=== PATIENT | male | born 1925 | race Caucasian/White ===

== ENCOUNTER 2017-05-15 11:23 | Observation (INO) | payer OTHER ==
[~2017-05-15] VITALS: Ht 180.3 cm; Wt 72.0 kg
[~2017-05-15 11:23] MED LIST: ALFUZOSIN HCL10 MG PO; CENTRUM SILVER1 EAC3 PO; GINKGO BILOBA60 M3 PO; HYDROCODON-ACE1 EAC7 PO; IRON TABLET PO; LISINOPRIL2.5 MG PO; PRAVACHOL20 MG PO; ST. JOSEPH ASPI81 MG PO
[2017-05-15 12:20] LABS: HEMATOCRIT 35.5 % (38.0-50.0); MCH 28.4 PG (29.0-34.0); MCHC 32.7 G/DL (30.0-36.0); MEAN PLAT.VOLUME 11.2 uM^3 (9.0-12.4); PLATELET COUNT 254 K/uL (156-360); RBC DIS.WIDTH-CV 14.2 % (11.8-14.6); RED BLOOD COUNT 4.08 M/uL (4.00-5.50); WHITE BLOOD COUNT 12.7 K/uL (4.1-10.2)
[2017-05-15 12:31] LABS: CHLORIDE 105 mEq/L (99-109); POTASSIUM 4.6 mEq/L (3.7-5.4); SODIUM 140 mEq/L (136-147)
[2017-05-15 12:33] LABS: GLUCOSE 214 mg/dL (70-99)
[2017-05-15 12:34] LABS: ANION GAP 14 MEQ/L (2-14)
[2017-05-15 12:37] LABS: GFR ESTIMATE (CALCULATED) 30 mL/min/
[2017-05-15 12:38] LABS: UREA NITROGEN (BUN) 66 mg/dL (9-23)
[2017-05-15 14:33] LABS: ADD MIUA? YES; BILIRUBIN NEGATIVE; BLOOD NEGATIVE; COLOR YELLOW ((YELLOW)); GLUCOSE (STRIP) NEGATIVE; KETONES 5; LEUKOCYTES LARGE; NITRITE POSITIVE; PROTEIN (STRIP) 30; SPECIFIC GRAVITY 1.015 (1.000-1.030); UROBILINOGEN 0.2 MG/DL (0.2-1.0)
[2017-05-15 14:41] LABS: BACTERIA NONE SEEN /HPF; EPITHELIAL CELLS NONE SEEN /HPF; MUCUS TRACE /LPF; RED BLOOD CELLS 0-5 /HPF (0-5); UCUL ADDED? YES; WHITE BLOOD CELLS TNTC /HPF (0-5); WHITE BLOOD CELLS CLUMP FEW /HPF (0-5)
[2017-05-15] MEDS ORDERED: FLUTICASONE PRO16 GM BOTH NARES (17:16)
[2017-05-15] MEDS ORDERED: NAPROXEN500 MG PO (17:18)
[2017-05-15] MEDS ORDERED: TAMSULOSIN HCL0.4 MG PO (17:21)
[2017-05-15] MEDS ORDERED: VESICARE10 MG PO (17:25)
[2017-05-15] MEDS ORDERED: AMITRIPTYLINE H25 MG PO (17:26)
[2017-05-15] MEDS ORDERED: METFORMIN HCL1000 MG PO (17:27)
[2017-05-15 19:18] LABS: Estimated Average Glucose 160 mg/dL (70-123); HEMOGLOBIN A1c (GLYCOHEMOGLOB) 7.2 % HGB (Below 5.7)
[2017-05-15 20:06] VITALS: BP 135/65
[2017-05-15 21:09] LABS: POINT-OF-CARE METER ID UU13113831
[2017-05-16 00:19] VITALS: BP 149/66
[2017-05-16 04:00] VITALS: BP 143/70
[2017-05-16 05:44] LABS: HEMATOCRIT 30.7 % (38.0-50.0); MCH 27.6 PG (29.0-34.0); MCHC 31.6 G/DL (30.0-36.0); MCV 87.2 FL (86-99); MEAN PLAT.VOLUME 11.3 uM^3 (9.0-12.4); PLATELET COUNT 227 K/uL (156-360); RBC DIS.WIDTH-CV 14.4 % (11.8-14.6); RBC DIS.WIDTH-SD 45.7 % (39-53); RED BLOOD COUNT 3.52 M/uL (4.00-5.50)
[2017-05-16 06:05] LABS: ALKALINE PHOSPHATASE 54 IU/L (3-129); ANION GAP 8 MEQ/L (2-14); CHLORIDE 110 MEQ/L (99-109); GFR ESTIMATE (CALCULATED) 36 mL/min/; GLUCOSE 139 mg/dL (70-99); SAMPLE HEMOLYSIS CHECK 0; SAMPLE ICTERIC CHECK 0; SAMPLE LIPEMIA CHECK 0; SODIUM 142 MEQ/L (136-147); TOTAL BILIRUBIN 0.3 MG/DL (0.0-1.0); UREA NITROGEN (BUN) 60 mg/dL (9-23)
[2017-05-16 07:34] VITALS: BP 147/67
[2017-05-16 08:25] LABS: POINT-OF-CARE METER ID UU14162513
[2017-05-16 12:15] LABS: POINT-OF-CARE METER ID UU14162513
[2017-05-16 12:51] VITALS: BP 152/73
[2017-05-16 17:49] LABS: POINT-OF-CARE METER ID UU14162513
[2017-05-16 17:55] VITALS: BP 136/66
[2017-05-16 20:00] VITALS: BP 150/68
[2017-05-16 21:11] LABS: POINT-OF-CARE METER ID UU14162513
[2017-05-17] VITALS: BP 159/70
[2017-05-17 03:12] VITALS: BP 136/64
[2017-05-17 05:35] LABS: EOSINOPHIL (%) 4.1 % (0-5); EOSINOPHIL COUNT 0.2 K/uL (0-0.3); HEMATOCRIT 28.6 % (38.0-50.0); IMMATURE GRANULOCYTE (%) 1.7 % (0.0-0.7); IMMATURE GRANULOCYTE COUNT 0.1 K/uL; INSTRUMENT ABS NEUTROPHIL CT 3.6 K/uL; LYMPHOCYTE COUNT 0.9 K/uL (1.0-2.8); MCH 27.9 PG (29.0-34.0); MCHC 32.2 G/DL (30.0-36.0); MCV 86.7 FL (86-99); MEAN PLAT.VOLUME 10.7 uM^3 (9.0-12.4); MONOCYTE (%) 9.3 % (3-12); MONOCYTE COUNT 0.5 K/uL (0-0.8); NEUTROPHIL (%) 67.3 % (45-76); NEUTROPHIL COUNT 3.6 K/uL (1.8-6.4); PLATELET COUNT 240 K/uL (156-360); RBC DIS.WIDTH-CV 14.1 % (11.8-14.6); RBC DIS.WIDTH-SD 44.9 % (39-53); WHITE BLOOD COUNT 5.4 K/uL (4.1-10.2)
[2017-05-17 06:05] LABS: ANION GAP 8 MEQ/L (2-14); CHLORIDE 112 MEQ/L (99-109); GFR ESTIMATE (CALCULATED) 51 mL/min/; GLUCOSE 134 mg/dL (70-99); POTASSIUM 4.4 MEQ/L (3.7-5.4); SAMPLE HEMOLYSIS CHECK 0; SAMPLE ICTERIC CHECK 0; SAMPLE LIPEMIA CHECK 0; SODIUM 142 MEQ/L (136-147); UREA NITROGEN (BUN) 40 mg/dL (9-23)
[2017-05-17 07:45] VITALS: BP 156/72
[2017-05-17] MEDS ORDERED: BACTRIM,SEPT1 TABLET PO (10:39)
[2017-05-17] MEDS ORDERED: JANUVIA25 M1 PO (10:39)
[2017-05-17 12:39] VITALS: BP 154/70
[2017-05-17 12:42] LABS: POINT-OF-CARE METER ID UU14162513
[2017-05-17] MEDS ORDERED: LOVENOX30 MG/0.3 SC (16:15)
[2017-05-17] MEDS ORDERED: ROBITUSSIN100 MG/5 M PO (16:16)
[2017-05-17] MEDS ORDERED: NOVOLOG PE100 UNITS/ SC (16:17)
[2017-05-17] MEDS ORDERED: REGLAN5 MG/ML IV (16:18)
[2017-05-17] MEDS ORDERED: ZOFRAN4 MG PO (16:20)
== END 2017-05-17 14:08 ==
LOC: EME 11:23 → EDOF 16:53 → 5WEST 16:53 → EDOF 16:53 → ENRESERV 16:57 → 5WEST 19:37 → ENRESERV 05-16 10:30 → CANRESERV 05-16 10:30 → 5WEST 05-17 14:08
PROVIDERS: Internal Medicine; Student in an Organized Health Care Education/Training Program
DX: N17.9 Acute kidney failure, unspecified (principal); E86.0 Dehydration; N39.0 Urinary tract infection, site not specified; B96.20 Unspecified Escherichia coli [E. coli] as the cause of diseases classified elsewhere; D72.829 Elevated white blood cell count, unspecified; D64.9 Anemia, unspecified; I10 Essential (primary) hypertension; E11.9 Type 2 diabetes mellitus without complications; N40.0 Benign prostatic hyperplasia without lower urinary tract symptoms; Z85.46 Personal history of malignant neoplasm of prostate; Z79.84 Long term (current) use of oral hypoglycemic drugs; Z92.3 Personal history of irradiation; Z87.891 Personal history of nicotine dependence; Z60.2 Problems related to living alone; Z79.82 Long term (current) use of aspirin
CPT/HCPCS: 70450; 71020; 80048; 80053; 81003; 82948; 83036; 85025; 85027; 87040; 87077; 87086; 87186; 93005; 99281; 99285; G0378; G8987 GO CJ; G8988 CI; G8989 CJ; J0696; J1650; J1815; J7030; J7050

== ENCOUNTER 2017-05-17 11:27 | Inpatient (IN) | payer OTHER ==
[~2017-05-17] VITALS: Ht 185.4 cm; Wt 73.8 kg
[~2017-05-17 11:27] MED LIST changes: +AMITRIPTYLINE H25 MG PO; +BACTRIM,SEPT1 TABLET PO; +FLUTICASONE PRO16 GM BOTH NARES; +JANUVIA25 M1 PO; +METFORMIN HCL1000 MG PO; +NAPROXEN500 MG PO; +TAMSULOSIN HCL0.4 MG PO; +VESICARE10 MG PO
[2017-05-17 14:38] VITALS: BP 128/63
[2017-05-17] MEDS ORDERED: LOVENOX30 MG/0.3 SC (16:15)
[2017-05-17] MEDS ORDERED: ROBITUSSIN100 MG/5 M PO (16:16)
[2017-05-17] MEDS ORDERED: NOVOLOG PE100 UNITS/ SC (16:17)
[2017-05-17] MEDS ORDERED: REGLAN5 MG/ML IV (16:18)
[2017-05-17] MEDS ORDERED: ZOFRAN4 MG PO (16:20)
[2017-05-17 16:29] LABS: POINT-OF-CARE METER ID UU13113720
[2017-05-17 21:23] LABS: POINT-OF-CARE METER ID UU13113720
[2017-05-18 05:14] VITALS: BP 167/75
[2017-05-18 05:52] LABS: HEMATOCRIT 29.5 % (38.0-50.0); MCH 28.2 PG (29.0-34.0); MCHC 32.2 G/DL (30.0-36.0); MCV 87.5 FL (86-99); MEAN PLAT.VOLUME 10.7 uM^3 (9.0-12.4); PLATELET COUNT 268 K/uL (156-360); RBC DIS.WIDTH-CV 14.3 % (11.8-14.6); RBC DIS.WIDTH-SD 45.6 % (39-53); RED BLOOD COUNT 3.37 M/uL (4.00-5.50); WHITE BLOOD COUNT 6.8 K/uL (4.1-10.2)
[2017-05-18 06:40] LABS: ALKALINE PHOSPHATASE 47 IU/L (3-129); ANION GAP 5 MEQ/L (2-14); CHLORIDE 110 MEQ/L (99-109); GFR ESTIMATE (CALCULATED) 51 mL/min/; GLUCOSE 112 mg/dL (70-99); SAMPLE HEMOLYSIS CHECK 0; SAMPLE ICTERIC CHECK 0; SAMPLE LIPEMIA CHECK 0; SODIUM 140 MEQ/L (136-147); TOTAL BILIRUBIN 0.3 MG/DL (0.0-1.0); UREA NITROGEN (BUN) 27 mg/dL (9-23)
[2017-05-18 06:48] LABS: POTASSIUM 5.3 MEQ/L (3.7-5.4)
[2017-05-18 08:04] LABS: POINT-OF-CARE METER ID UU14174215; POINT-OF-CARE USER ID AHSSSJB31
[2017-05-18 11:40] LABS: POINT-OF-CARE METER ID UU14174215; POINT-OF-CARE USER ID AHSSSJB31
[2017-05-18 15:57] VITALS: BP 132/63
[2017-05-18 17:07] LABS: POINT-OF-CARE METER ID UU14174215
[2017-05-18 20:40] LABS: POINT-OF-CARE METER ID UU14174215
[2017-05-19 05:06] VITALS: BP 117/58
[2017-05-19 07:31] LABS: POINT-OF-CARE METER ID UU13113720; POINT-OF-CARE USER ID ENVGAF
[2017-05-19 11:58] LABS: POINT-OF-CARE METER ID UU13113720; POINT-OF-CARE USER ID ENVGAF
[2017-05-19 15:00] VITALS: BP 133/60
[2017-05-19 16:42] LABS: POINT-OF-CARE METER ID UU14174215
[2017-05-19 21:12] LABS: POINT-OF-CARE METER ID UU14174215
[2017-05-20 05:37] VITALS: BP 145/65
[2017-05-20 08:10] LABS: POINT-OF-CARE METER ID UU13113720; POINT-OF-CARE USER ID AHSSSJB31
[2017-05-20 11:26] LABS: POINT-OF-CARE METER ID UU13113720; POINT-OF-CARE USER ID AHSSSJB31
[2017-05-20 15:16] VITALS: BP 139/66
[2017-05-20 16:42] LABS: POINT-OF-CARE METER ID UU13113720; POINT-OF-CARE USER ID AHSSSJB31
[2017-05-20 21:06] LABS: POINT-OF-CARE METER ID UU13113720
[2017-05-21 04:24] VITALS: BP 110/49
[2017-05-21 07:41] LABS: POINT-OF-CARE METER ID UU14174215; POINT-OF-CARE USER ID AHSSSJB31
[2017-05-21 12:04] LABS: POINT-OF-CARE METER ID UU14174215; POINT-OF-CARE USER ID AHSSSJB31
[2017-05-21 15:33] VITALS: BP 123/60
[2017-05-22 06:00] VITALS: BP 117/55
[2017-05-22 07:49] LABS: POINT-OF-CARE METER ID UU14174215; POINT-OF-CARE USER ID AHSSSJB31
[2017-05-22 16:01] VITALS: BP 138/60
[2017-05-23 06:33] VITALS: BP 111/54
[2017-05-23 07:45] LABS: POINT-OF-CARE METER ID UU14174215; POINT-OF-CARE USER ID AHSSSJB31
[2017-05-23 15:07] VITALS: BP 117/61
[2017-05-24 05:23] VITALS: BP 149/65
[2017-05-24 15:01] VITALS: BP 125/61
[2017-05-25 04:57] VITALS: BP 115/56
[2017-05-25 07:32] LABS: POINT-OF-CARE METER ID UU13113720; POINT-OF-CARE USER ID 610211320
[2017-05-25 15:44] VITALS: BP 118/56
[2017-05-26 05:10] VITALS: BP 123/92
[2017-05-26 07:53] LABS: POINT-OF-CARE METER ID UU14174215; POINT-OF-CARE USER ID AHSSSJB31
[2017-05-26 08:30] VITALS: BP 117/56
[2017-05-26 15:26] VITALS: BP 116/56
[2017-05-27 05:22] VITALS: BP 107/66
[2017-05-27 14:59] VITALS: BP 110/56
[2017-05-28 05:13] VITALS: BP 122/57
[2017-05-28 07:00] LABS: POINT-OF-CARE METER ID UU13113720; POINT-OF-CARE USER ID ENVGAF
[2017-05-28 15:11] VITALS: BP 130/61
[2017-05-29 05:15] VITALS: BP 126/58
[2017-05-29 07:19] LABS: HEMATOCRIT 28.8 % (38.0-50.0); MCH 27.5 PG (29.0-34.0); MCHC 32.3 G/DL (30.0-36.0); MCV 85.2 FL (86-99); MEAN PLAT.VOLUME 11.4 uM^3 (9.0-12.4); PLATELET COUNT 257 K/uL (156-360); RBC DIS.WIDTH-CV 13.8 % (11.8-14.6); RBC DIS.WIDTH-SD 43.2 % (39-53); RED BLOOD COUNT 3.38 M/uL (4.00-5.50)
[2017-05-29 07:45] LABS: ALKALINE PHOSPHATASE 68 IU/L (3-129); ANION GAP 6 MEQ/L (2-14); CHLORIDE 107 MEQ/L (99-109); GFR ESTIMATE (CALCULATED) 47 mL/min/; GLUCOSE 111 mg/dL (70-99); POTASSIUM 5.2 MEQ/L (3.7-5.4); SAMPLE HEMOLYSIS CHECK 0; SAMPLE ICTERIC CHECK 0; SAMPLE LIPEMIA CHECK 0; SODIUM 135 MEQ/L (136-147); TOTAL BILIRUBIN 0.3 MG/DL (0.0-1.0); UREA NITROGEN (BUN) 27 mg/dL (9-23)
[2017-05-29 08:08] LABS: POINT-OF-CARE METER ID UU14174215
[2017-05-29 15:29] VITALS: BP 137/60
[2017-05-30 06:11] VITALS: BP 103/51
[2017-05-30 07:23] LABS: POINT-OF-CARE METER ID UU13113720
[2017-05-30] MEDS ORDERED: JANUVIA25 M1 PO (08:03)
== END 2017-05-30 14:35 | DRG 92 ==
LOC: 3WEST 11:27 → ENPENDDIS 05-30 → 3WEST 05-30 14:35
PROVIDERS: Physical Medicine & Rehabilitation Pain Medicine
PROC: F07M0ZZ Range of Motion and Joint Mobility Treatment of Musculoskeletal System - Whole Body (ICD-10-PCS; principal; 2017-05-17)
DX: R26.81 Unsteadiness on feet (principal); E87.1 Hypo-osmolality and hyponatremia; E86.0 Dehydration; N17.9 Acute kidney failure, unspecified; N39.0 Urinary tract infection, site not specified; B96.20 Unspecified Escherichia coli [E. coli] as the cause of diseases classified elsewhere; E83.51 Hypocalcemia; E77.8 Other disorders of glycoprotein metabolism; E88.09 Other disorders of plasma-protein metabolism, not elsewhere classified; I10 Essential (primary) hypertension; E11.9 Type 2 diabetes mellitus without complications; R53.1 Weakness; N40.0 Benign prostatic hyperplasia without lower urinary tract symptoms; F03.90 Unspecified dementia, unspecified severity, without behavioral disturbance, psychotic disturbance, mood disturbance, and anxiety; M47.814 Spondylosis without myelopathy or radiculopathy, thoracic region; M41.9 Scoliosis, unspecified; D64.9 Anemia, unspecified; H91.90 Unspecified hearing loss, unspecified ear; Z85.46 Personal history of malignant neoplasm of prostate; Z92.3 Personal history of irradiation; Z87.891 Personal history of nicotine dependence; Z60.2 Problems related to living alone; Z79.4 Long term (current) use of insulin
CPT/HCPCS: 80053; 82948; 85027; 92523 GN; 97110 GO; 97530 GP; 97532 GN; J1650; J1815

== ENCOUNTER 2017-06-07 14:40 | Emergency (ER) | payer OTHER ==
[~2017-06-07] VITALS: Ht 182.9 cm; Wt 71.8 kg
[~2017-06-07 14:40] MED LIST changes: +LOVENOX30 MG/0.3 SC; +NOVOLOG PE100 UNITS/ SC; +REGLAN5 MG/ML IV; +ROBITUSSIN100 MG/5 M PO; +ZOFRAN4 MG PO
[2017-06-07 15:26] LABS: CHLORIDE 106 mEq/L (99-109); SODIUM 137 mEq/L (136-147)
[2017-06-07 15:29] LABS: GLUCOSE 160 mg/dL (70-99)
[2017-06-07 15:30] LABS: ANION GAP 10 MEQ/L (2-14)
[2017-06-07 15:31] LABS: TOTAL BILIRUBIN 0.8 mg/dL (0.0-1.0)
[2017-06-07 15:32] LABS: ALKALINE PHOSPHATASE 71 IU/L (3-129); GFR ESTIMATE (CALCULATED) 38 mL/min/ (58.99-99999)
[2017-06-07 15:33] LABS: UREA NITROGEN (BUN) 26 mg/dL (9-23)
[2017-06-07 15:51] LABS: HEMATOCRIT 29.1 % (38.0-50.0); MCH 28.1 PG (29.0-34.0); MCV 85.1 FL (86-99); RBC DIS.WIDTH-CV 14.1 % (11.8-14.6); RBC DIS.WIDTH-SD 43.7 % (39-53); RED BLOOD COUNT 3.42 M/uL (4.00-5.50); WHITE BLOOD COUNT 9.7 K/uL (4.1-10.2)
[2017-06-07 16:13] LABS: PLATELET CLUMPS PRESENT - PLATELET COUNT APPEARS ADQ.; PLATELET COUNT UNABLE TO REPORT K/uL (156-360)
[2017-06-07 17:18] LABS: ADD MIUA? YES; BILIRUBIN NEGATIVE; BLOOD MODERATE; COLOR YELLOW ((YELLOW)); GLUCOSE (STRIP) NEGATIVE; KETONES NEGATIVE; LEUKOCYTES LARGE; NITRITE NEGATIVE; PROTEIN (STRIP) 30; SPECIFIC GRAVITY 1.013 (1.000-1.030); UROBILINOGEN 0.2 MG/DL (0.2-1.0)
[2017-06-07 17:47] LABS: BACTERIA NONE SEEN /HPF; EPITHELIAL CELLS RARE /HPF; MUCUS NONE SEEN /LPF; RED BLOOD CELLS 0-5 /HPF (0-5); UCUL ADDED? YES; WHITE BLOOD CELLS 20-30 /HPF (0-5)
[2017-06-07] MEDS ORDERED: BACTRIM,SEPT1 TABLET PO (17:59)
[2017-06-07 18:26] VITALS: BP 121/49
[2017-06-08] MEDS ORDERED: JANUVIA25 M1 PO (16:27)
== END 2017-06-07 18:28 | disposition home or self-care (01) ==
LOC: EME 14:40
PROVIDERS: Nurse Practitioner Family
DX: N39.0 Urinary tract infection, site not specified (principal); R41.0 Disorientation, unspecified; Z79.82 Long term (current) use of aspirin
CPT/HCPCS: 70450; 80053; 81003; 85027; 87077; 87086; 87186; 99281; 99285; J7030

== ENCOUNTER 2017-06-08 10:52 | Inpatient (IN) | payer OTHER ==
[~2017-06-08] VITALS: Ht 185.4 cm; Wt 72.8 kg
[2017-06-08 11:56] LABS: EOSINOPHIL (%) 0.2 % (0-5); HEMATOCRIT 25.5 % (38.0-50.0); IMMATURE GRANULOCYTE (%) 0.5 % (0.0-0.7); INSTRUMENT ABS NEUTROPHIL CT 5.6 K/uL; LYMPHOCYTE COUNT 0.4 K/uL (1.0-2.8); MCH 27.9 PG (29.0-34.0); MCHC 32.5 G/DL (30.0-36.0); MCV 85.6 FL (86-99); MEAN PLAT.VOLUME 11.4 uM^3 (9.0-12.4); MONOCYTE (%) 7.2 % (3-12); MONOCYTE COUNT 0.5 K/uL (0-0.8); NEUTROPHIL (%) 86.4 % (45-76); NEUTROPHIL COUNT 5.6 K/uL (1.8-6.4); RBC DIS.WIDTH-CV 14.1 % (11.8-14.6); RBC DIS.WIDTH-SD 43.9 % (39-53); RED BLOOD COUNT 2.98 M/uL (4.00-5.50); WHITE BLOOD COUNT 6.5 K/uL (4.1-10.2)
[2017-06-08 12:01] LABS: PLATELET COUNT 107 K/uL (156-360)
[2017-06-08 12:23] LABS: CHLORIDE 106 mEq/L (99-109); POTASSIUM 3.9 mEq/L (3.7-5.4); SODIUM 136 mEq/L (136-147)
[2017-06-08 12:27] LABS: ANION GAP 10 MEQ/L (2-14)
[2017-06-08 12:29] LABS: ALKALINE PHOSPHATASE 54 IU/L (3-129); GFR ESTIMATE (CALCULATED) 38 mL/min/ (58.99-99999)
[2017-06-08 12:30] LABS: UREA NITROGEN (BUN) 27 mg/dL (9-23)
[2017-06-08 12:32] LABS: GLUCOSE 247 mg/dL (70-99); TOTAL BILIRUBIN 0.4 mg/dL (0.0-1.0)
[2017-06-08 13:46] LABS: ADD MIUA? YES; BILIRUBIN NEGATIVE; BLOOD MODERATE; COLOR YELLOW ((YELLOW)); GLUCOSE (STRIP) 50; KETONES 5; LEUKOCYTES MODERATE; NITRITE POSITIVE; PROTEIN (STRIP) 30; SPECIFIC GRAVITY 1.014 (1.000-1.030); UROBILINOGEN 0.2 MG/DL (0.2-1.0)
[2017-06-08 13:50] LABS: BACTERIA 2+ /HPF; EPITHELIAL CELLS RARE /HPF; MUCUS NONE SEEN /LPF; UCUL ADDED? YES; WHITE BLOOD CELLS TNTC /HPF (0-5)
[2017-06-08] MEDS ORDERED: JANUVIA25 M1 PO (16:27)
[2017-06-08 18:35] LABS: TROP-I INTERPRETATION NEGATIVE; TROPONIN-I 0.01 ng/mL (0.0-0.30)
[2017-06-08 19:50] VITALS: BP 127/58
[2017-06-08 21:42] LABS: POINT-OF-CARE METER ID UU14314084
[2017-06-08 23:14] VITALS: BP 131/62
[2017-06-09] VITALS (7 sets, daily range): BP systolic 114–151; BP diastolic 56–70
[2017-06-09 01:13] LABS: TROP-I INTERPRETATION NEGATIVE; TROPONIN-I 0.02 ng/mL (0.0-0.30)
[2017-06-09 06:53] LABS: HEMATOCRIT 24.1 % (38.0-50.0); MCH 27.1 PG (29.0-34.0); MCV 84.9 FL (86-99); MEAN PLAT.VOLUME 11.7 uM^3 (9.0-12.4); PLATELET COUNT 94 K/uL (156-360); RBC DIS.WIDTH-SD 43.8 % (39-53); RED BLOOD COUNT 2.84 M/uL (4.00-5.50); WHITE BLOOD COUNT 3.6 K/uL (4.1-10.2)
[2017-06-09 07:02] LABS: POINT-OF-CARE METER ID UU14314084
[2017-06-09 07:14] LABS: ANION GAP 7 MEQ/L (2-14); CHLORIDE 111 MEQ/L (99-109); GFR ESTIMATE (CALCULATED) 43 mL/min/ (58.99-99999); POTASSIUM 3.8 MEQ/L (3.7-5.4); SAMPLE HEMOLYSIS CHECK 0; SAMPLE ICTERIC CHECK 0; SAMPLE LIPEMIA CHECK 0; SODIUM 140 MEQ/L (136-147); UREA NITROGEN (BUN) 26 mg/dL (9-23)
[2017-06-09 07:17] LABS: GLUCOSE 120 mg/dL (70-99)
[2017-06-09 11:26] LABS: POINT-OF-CARE METER ID UU14314084
[2017-06-09 13:14] LABS: IMM.RETIC FRACTION 9.1 % (3-19); RETIC HGB EQUIVALENT 25.4 (28-36); RETICULOCYTE COUNT 1.1 % (0.5-1.8)
[2017-06-09 14:13] LABS: FERRITIN 509 NG/ML (22-322); IRON < 10 MCG/DL (35-150); LACTATE DEHYDROGENASE 135 IU/L (20-246)
[2017-06-09 16:41] LABS: POINT-OF-CARE METER ID UU14162508
[2017-06-09 21:43] LABS: POINT-OF-CARE METER ID UU14314084
[2017-06-10 00:05] VITALS: BP 143/65
[2017-06-10 04:16] VITALS: BP 128/59
[2017-06-10 06:26] LABS: POINT-OF-CARE METER ID UU14314084
[2017-06-10 07:09] LABS: EOSINOPHIL (%) 5.8 % (0-5); EOSINOPHIL COUNT 0.2 K/uL (0-0.3); HEMATOCRIT 24.4 % (38.0-50.0); IMMATURE GRANULOCYTE (%) 0.8 % (0.0-0.7); INSTRUMENT ABS NEUTROPHIL CT 2.6 K/uL; LYMPHOCYTE COUNT 0.5 K/uL (1.0-2.8); MCH 27.1 PG (29.0-34.0); MCV 84.7 FL (86-99); MEAN PLAT.VOLUME 11.4 uM^3 (9.0-12.4); MONOCYTE (%) 9.8 % (3-12); MONOCYTE COUNT 0.4 K/uL (0-0.8); NEUTROPHIL (%) 69.3 % (45-76); NEUTROPHIL COUNT 2.6 K/uL (1.8-6.4); PLATELET COUNT 104 K/uL (156-360); RBC DIS.WIDTH-CV 14.1 % (11.8-14.6); RBC DIS.WIDTH-SD 43.7 % (39-53); RED BLOOD COUNT 2.88 M/uL (4.00-5.50); WHITE BLOOD COUNT 3.8 K/uL (4.1-10.2)
[2017-06-10 07:10] VITALS: BP 156/71
[2017-06-10 07:37] LABS: ANION GAP 7 MEQ/L (2-14); CHLORIDE 109 MEQ/L (99-109); GFR ESTIMATE (CALCULATED) 51 mL/min/ (58.99-99999); GLUCOSE 114 mg/dL (70-99); POTASSIUM 3.9 MEQ/L (3.7-5.4); SAMPLE HEMOLYSIS CHECK 0; SAMPLE ICTERIC CHECK 0; SAMPLE LIPEMIA CHECK 0; SODIUM 136 MEQ/L (136-147); UREA NITROGEN (BUN) 20 mg/dL (9-23)
[2017-06-10 11:17] LABS: POINT-OF-CARE METER ID UU14314084
[2017-06-10 11:48] VITALS: BP 134/60
[2017-06-10 16:05] LABS: POINT-OF-CARE METER ID UU14314084
[2017-06-10 17:51] VITALS: BP 167/72
[2017-06-10 20:00] VITALS: BP 140/68
[2017-06-10 21:38] LABS: POINT-OF-CARE METER ID UU14208750
[2017-06-10 21:49] LABS: POINT-OF-CARE METER ID UU14314084
[2017-06-11 00:36] VITALS: BP 158/70
[2017-06-11 04:16] VITALS: BP 159/72
[2017-06-11 06:15] LABS: POINT-OF-CARE METER ID UU14314084
[2017-06-11 08:24] VITALS: BP 166/70
[2017-06-11 12:34] LABS: POINT-OF-CARE METER ID UU14162508
[2017-06-11 16:02] VITALS: BP 159/68
[2017-06-11 16:33] LABS: POINT-OF-CARE METER ID UU14208750
[2017-06-11 21:33] LABS: POINT-OF-CARE METER ID UU14314084
[2017-06-12 00:42] VITALS: BP 143/67
[2017-06-12 06:22] LABS: POINT-OF-CARE METER ID UU14314084
[2017-06-12 07:48] VITALS: BP 153/67
[2017-06-12 11:06] LABS: POC NON-PRINT COM 1 ND
[2017-06-12 12:49] LABS: POINT-OF-CARE METER ID UU14314084
[2017-06-12] MEDS ORDERED: BACTRIM,SEPT1 TABLET PO (15:19)
[2017-06-12 15:55] VITALS: BP 152/68
[2017-06-12 16:27] LABS: POINT-OF-CARE METER ID UU14314084
== END 2017-06-12 18:44 | disposition home health service (06) | DRG 872 ==
LOC: EME → EDBD 10:52 → EME 10:52 → 2EAST 15:36 → EDOF 15:36 → ENRESERV 15:46 → 2EAST 19:16
PROVIDERS: Emergency Medicine; Internal Medicine
DX: A41.9 Sepsis, unspecified organism (principal); R65.20 Severe sepsis without septic shock; N17.9 Acute kidney failure, unspecified; E86.0 Dehydration; N39.0 Urinary tract infection, site not specified; N40.1 Benign prostatic hyperplasia with lower urinary tract symptoms; R33.8 Other retention of urine; B96.20 Unspecified Escherichia coli [E. coli] as the cause of diseases classified elsewhere; I12.9 Hypertensive chronic kidney disease with stage 1 through stage 4 chronic kidney disease, or unspecified chronic kidney disease; N18.3 Chronic kidney disease, stage 3 (moderate); E11.22 Type 2 diabetes mellitus with diabetic chronic kidney disease; E11.65 Type 2 diabetes mellitus with hyperglycemia; D63.1 Anemia in chronic kidney disease; D69.6 Thrombocytopenia, unspecified; M17.9 Osteoarthritis of knee, unspecified; F03.90 Unspecified dementia, unspecified severity, without behavioral disturbance, psychotic disturbance, mood disturbance, and anxiety; Z66 Do not resuscitate; Z79.82 Long term (current) use of aspirin; Z85.46 Personal history of malignant neoplasm of prostate; Z79.84 Long term (current) use of oral hypoglycemic drugs; Z87.891 Personal history of nicotine dependence; Z91.14 Patient's other noncompliance with medication regimen
CPT/HCPCS: 70450; 73560; 76770; 80048; 80053; 81003; 82272; 82306; 82607; 82728; 82746; 82948; 83540; 83605; 83615; 84466; 84484; 85025; 85027; 85045; 87040; 87077; 87086; 87086 GA; 87186; 93005; 99281; 99285; J0696; J1644; J1815; J2543; J7030; J7040; J7050